=== PATIENT | female | born 1965 | race Caucasian/White ===

== ENCOUNTER 2020-08-17 09:13 | Outpatient (REF) | payer MEDICAID, SELFPAY ==
--- NOTE | 2020-08-17 | US_ITS ---
EXAMINATION: US RETROPERITONEAL LIMITED (RENAL ONLY) CLINICAL INFORMATION: Nephrolithiasis. COMPARISON: CT abdomen and pelvis 05/03/2020. Renal ultrasound 01/07/2017. TECHNIQUE: Real-time imaging of the kidneys. FINDINGS: RIGHT KIDNEY: 11.6 x 4.2 x 4.4 cm (SAG x AP x TRV). The kidney is normal in size, contour, and echogenicity. Renal cortical thickness is normal. No calculi or focal parenchymal lesions. No hydronephrosis. LEFT KIDNEY: 10.5 x 5.6 x 5.4 cm (SAG x AP x TRV). The kidney is normal in size, contour, and echogenicity. Renal cortical thickness is normal. No calculi or focal parenchymal lesions. No hydronephrosis. IMPRESSION: Normal renal ultrasound. Stones described on the CT scan from April 2020 not visible on ultrasound.
== END 2020-08-17 09:14 | disposition home or self-care (01) ==
LOC: HO.US 09:13
PROVIDERS: PCP Internal Medicine; Visit Provider Urology
DX: N20.0 Calculus of kidney (principal)
CPT/HCPCS: 76775

== ENCOUNTER 2020-09-09 10:24 | Outpatient (REF) | payer MEDICAID, SELFPAY ==
[2020-09-09 13:04] LABS: Erythrocyte Sedimentation Rate 30 MM/HR (0-20)
[2020-09-09 13:30] LABS: Syphilis Screen Nonreactive (Nonreactive)
[2020-09-09 13:33] LABS: Rheumatoid Factor < 15.0 IU/mL (<15.0)
[2020-09-10 09:22] LABS: Lyme Abs Screen <0.90 index
== END 2020-09-09 10:25 | disposition home or self-care (01) ==
LOC: HO.LAB 10:24
PROVIDERS: PCP Internal Medicine; Visit Provider Psychiatry & Neurology Neurology
DX: M79.7 Fibromyalgia (principal)
CPT/HCPCS: 36415; 82550; 84550; 85652; 86431; 86618; 86780

== ENCOUNTER → 2020-10-26 09:52 | Outpatient (BNVA) | payer MEDICAID, SELFPAY | PROVIDERS: Visit Provider Obstetrics & Gynecology | DX: Z76.89 Persons encountering health services in other specified circumstances (principal) ==

== ENCOUNTER → 2020-11-24 13:11 | Outpatient (BNVA) | payer MEDICAID, SELFPAY | PROVIDERS: PCP Internal Medicine; Visit Provider Physician Assistant ==

== ENCOUNTER 2021-05-15 12:44 | Outpatient (REF) | payer MEDICAID, SELFPAY ==
--- NOTE | ~2021-05-15 | MM_ITS ---
EXAMINATION: MM SCREENING DIGITAL BREAST TOMOSYNTHESIS, BILATERAL CLINICAL INFORMATION: Screening. Asymptomatic. The lifetime risk of breast cancer based on the Tyrer-Cuzick Model is 6%. COMPARISON: Mammography: 12/22/2019, 12/19/2018, 01/02/2017 TECHNIQUE: Digital breast tomosynthesis is performed in both the craniocaudal and mediolateral oblique views along with computer-aided detection (CAD). Synthesized 2D images are generated from the tomosynthesis. Technologist notes technically challenging exam, tailored to patient's capabilities. FINDINGS: There are scattered areas of fibroglandular density (ACR BI-RADS breast composition Category b). There are no significant masses, abnormal calcifications, or other abnormalities. Referable pattern is similar to prior exam. No developing density. No significant changes. MM/MM tomosynthesis screening BI IMPRESSION: No mammographic evidence of malignancy. ASSESSMENT: BI-RADS 1: Negative RECOMMENDATION: Routine annual mammography screening. This patient's information was entered into a reminder system with a target due date for their next mammogram.
== END 2021-05-15 12:45 | disposition home or self-care (01) ==
LOC: HO.MAMMO 12:44
PROVIDERS: PCP Internal Medicine; Visit Provider Internal Medicine
DX: Z12.31 Encounter for screening mammogram for malignant neoplasm of breast (principal)
CPT/HCPCS: 77063; 77067

== ENCOUNTER 2021-05-21 16:07 | Emergency (ER) | payer MEDICAID, SELFPAY ==
[2021-05-21 16:16] VITALS: BP 151/97; PULSE 100; RESP 18; TEMP 37.2; O2SAT 98; BMI 29.6
[2021-05-21 17:04] LABS: MANUAL DIFF FLAG NO
[2021-05-21 17:09] LABS: Basophils Percent Auto 0.4 % (0-2); Eosinophils Absolute Auto 0.2 X10*3/uL (0.0-0.4); Eosinophils Percent Auto 1.6 % (0-4); Hematocrit 43.4 % (37-47); Hemoglobin 15.1 g/dl (12.0-16.0); Imm Gran Abs Auto 0.02 X10*3/uL (0.00-0.03); Imm Gran Pct Auto 0.2 % (0.0-0.4); Lymphocytes Absolute Auto 1.8 X10*3/uL (1.2-4.9); Lymphocytes Percent Auto 18.7 % (20-40); Mean Corpuscular HGB Conc 34.8 g/dl (31.0-35.0); Mean Corpuscular Hemoglobin 31.4 pg (27.0-33.0); Mean Corpuscular Volume 90.2 fL (80-98); Mean Platelet Volume 10.5 fL (9.4-12.3); Monocytes Absolute Auto 0.8 X10*3/uL (0.1-1.2); Monocytes Percent Auto 8.9 % (2-11); Neutrophils Absolute Auto 6.6 X10*3/uL (2.0-8.3); Neutrophils Percent Auto 70.2 % (45-73); Platelet Count 480 X10*3/uL (160-400); Red Blood Count 4.81 X10*6/uL (4.20-5.50); Red Cell Distribution Width 11.4 % (11.0-16.0); White Blood Count 9.5 X10*3/uL (4.8-10.8)
[2021-05-21 17:42] LABS: Alanine Aminotransferase 49 U/L (0-31); Albumin Level 4.8 g/dL (3.5-5.0); Alkaline Phosphatase 106 U/L (39-117); Anion Gap 15 (12-20); Aspartate Amino Transferase 46 U/L (5-31); Bilirubin Total 0.5 mg/dL (0.0-1.0); Blood Urea Nitrogen 6 mg/dL (9-16); Carbon Dioxide 29 mmol/L (22-29); Chloride 100 mmol/L (96-108); Creatinine Clr Calc Pharmacy 77.4; Estimated Glomerular Filt Rate > 60; Glucose Random 151 mg/dL (60-115); Potassium 3.8 mmol/L (3.3-5.1); Sodium 140 mmol/L (135-145); Total Protein 8.3 g/dL (6.5-8.0)
[2021-05-21 17:53] LABS: Calcium 10.7 mg/dL (8.4-10.2)
== END 2021-05-21 20:00 | disposition left against medical advice (07) ==
PROVIDERS: Emergency Provider Emergency Medicine; PCP Internal Medicine
DX: R10.30 Lower abdominal pain, unspecified (principal); R35.0 Frequency of micturition
CPT/HCPCS: 36415; 80053; 85025; 99282

== ENCOUNTER → 2021-06-09 15:29 | Outpatient (BNVA) | payer MEDICAID, SELFPAY | PROVIDERS: PCP Internal Medicine | DX: R35.0 Frequency of micturition (principal) | CPT/HCPCS: 99202 ==

== ENCOUNTER → 2021-06-22 14:33 | Outpatient (BNVA) | payer MEDICAID, SELFPAY | PROVIDERS: PCP Internal Medicine; Visit Provider Obstetrics & Gynecology | DX: R10.2 Pelvic and perineal pain (principal) | CPT/HCPCS: 99202 ==

== ENCOUNTER → 2021-07-03 15:20 | Outpatient (BNVA) | payer MEDICAID, SELFPAY | PROVIDERS: PCP Internal Medicine | DX: R35.0 Frequency of micturition (principal) | CPT/HCPCS: 99212 ==

== ENCOUNTER 2021-07-11 15:44 | Outpatient (REF) | payer MEDICAID, SELFPAY ==
--- NOTE | ~2021-07-11 | US_ITS ---
EXAMINATION: US PELVIS CLINICAL INFORMATION: Pain. COMPARISON: Previous CT of the abdomen and pelvis April 2020 and pelvic ultrasound December 2007 TECHNIQUE: Transabdominal pelvic ultrasound. FINDINGS: The uterus has been removed. The right ovary is normal-appearing and measures 2.6 x 1.1 x 1.8 cm. There is question of a 3.7 x 2.7 x 3.1 cm left adnexal cyst. There is no fluid in the pelvis. US/US pelvic complete IMPRESSION: Post-hysterectomy. Normal-appearing right ovary. Question 3.7 x 2.7 x 3.1 cm simple left adnexal cyst.
== END 2021-07-11 15:45 | disposition home or self-care (01) ==
LOC: HO.US 15:44
PROVIDERS: Visit Provider Obstetrics & Gynecology
DX: R10.2 Pelvic and perineal pain (principal)
CPT/HCPCS: 76830; 76856

== ENCOUNTER → 2021-07-25 12:08 | Outpatient (BNVA) | payer MEDICAID, SELFPAY | PROVIDERS: PCP Internal Medicine; Visit Provider Obstetrics & Gynecology ==

== ENCOUNTER → 2021-07-27 15:23 | Outpatient (BNVA) | payer MEDICAID, SELFPAY | PROVIDERS: PCP Internal Medicine | DX: R10.2 Pelvic and perineal pain (principal); N39.0 Urinary tract infection, site not specified | CPT/HCPCS: 99212 ==

== ENCOUNTER 2021-09-07 22:02 | Emergency (ER) | payer MEDICAID, SELFPAY ==
[2021-09-07 22:38] VITALS: BP 150/95; PULSE 108; RESP 18; TEMP 36.9; O2SAT 97; BMI 30.1
--- NOTE | 2021-09-07 23:13 | ED_ITS ---
HPI - Abdominal Pain General Chief Complaint: Abdominal Pain <MERON Anne Last Filed: 09/08/21 01:16> Stated Complaint: Lower abdominal pain <MERON Anne Last Filed: 09/08/21 01:16> Time Seen by Provider: 09/07/21 22:58 <MERON Anne Last Filed: 09/08/21 01:16> Source: patient <MERON Anne Last Filed: 09/08/21 01:16> Mode of arrival: ambulatory <MERON Anne Last Filed: 09/08/21 01:16> History of Present Illness HPI narrative: 56-year-old female the past medical history of early-onset Alzheimer's, recurrent UTIs, primarily Taiwanese-speaking, presenting to the ED complaining of left lower quadrant abdominal pain, dysuria, & urinary frequency since yesterday. Daughter provides most of history, reports patient with similar symptoms in the past with UTI. Denies fever, chills, nausea, vomiting, diarrhea, constipation, hematuria <MERON Anne Last Filed: 09/08/21 01:16> Related Data Home Medications: Home Medications Medication Instructions Recorded Confirmed amlodipine 5 mg tablet 5 mg PO DAILY 10/26/20 06/09/21 atorvastatin 20 mg tablet 20 mg PO DAILY 10/26/20 06/09/21 carvedilol 6.25 mg tablet 6.25 mg PO Q12H 10/26/20 06/09/21 donepezil 10 mg tablet 10 mg PO DAILY 10/26/20 06/09/21 gabapentin 400 mg capsule 400 mg PO DAILY 10/26/20 06/09/21 paroxetine HCl 40 mg tablet 40 mg PO DAILY 10/26/20 06/09/21 ciprofloxacin HCl 500 mg tablet 500 mg PO Q12H 06/09/21 06/09/21 donepezil 10 mg tablet 10 mg PO BEDTIME 06/09/21 06/09/21 doxycycline hyclate 100 mg tablet 100 mg PO BID 06/09/21 06/09/21 ibuprofen 800 mg tablet 800 mg PO TID 06/09/21 06/09/21 memantine 10 mg tablet 10 mg PO BID 06/09/21 06/09/21 metformin 500 mg tablet 500 mg PO BID 06/09/21 06/09/21 oxycodone 5 mg tablet 5 mg PO QID PRN 06/09/21 06/09/21 amlodipine 2.5 mg tablet 2.5 mg PO QAM 07/03/21 blood sugar diagnostic (FreeStyle #10 ea 07/03/21 Lite Strips) divalproex 250 mg tablet,extended 250 mg PO BEDTIME 07/03/21 release 24 hr lancets 33 gauge (TRUEplus Lancets) #100 ea 07/03/21 Previous Rx's Medication Instructions Recorded estradiol (Estrace) See Rx Instructions .ROUTE DAILY 07/03/21 30 Days #42.5 g nitrofurantoin 100 mg PO Q12H 7 Days #14 cap 09/08/21 monohydrate/macrocrystals 100 mg capsule (Macrobid) <MERON Anne Last Filed: 09/08/21 01:16> Allergies/Adverse Reactions: Allergies Allergy/AdvReac Type Severity Reaction Status Date / Time codeine [Codeine] Allergy Intermediate HIVES Verified 07/27/21 15:35 morphine Allergy Unknown unknown Verified 07/27/21 15:35 SPICES Allergy Unknown UNKNOWN Uncoded 06/09/21 15:59 <MERON Anne - Last Filed: 09/08/21 01:16> Review of Systems Review of Systems Constitutional: No Fever, No Chills, No Fatigue, No Malaise ENT/Mouth: No Ear Pain, No Nasal Congestion, No sore throat Eyes: No Eye Pain Cardiovascular: No Chest Pain, No SOB Respiratory: No Cough, No Dyspnea Gastrointestinal: No Nausea, No Vomiting, No Diarrhea, No Constipation, No Abdominal pain Genitourinary: No irregular bleeding, + Dysuria, + Urinary Frequency, No Hematuria,+ Urgency, + Flank Pain, No Urinary Flow Changes, No Hesitancy Musculoskeletal: No joint pain, No Myalgias Skin: No Skin Lesions, No rash Neuro: No Weakness, No Numbness, No Headache <MERON Anne Last Filed: 09/08/21 01:16> Yes all other systems are reviewed and are negative <MERON Anne Last Filed: 09/08/21 01:16> Physical Exam Vital Signs: Vital Signs: Last Vital Signs Temp 98.5 F 09/07/21 22:38 Pulse 99 09/08/21 02:00 Resp 16 09/08/21 02:00 BP 129/85 09/08/21 02:00 Pulse Ox 97 09/08/21 02:00 Body Mass Index 30.1 <MERON Anne - Last Filed: 09/08/21 01:16> Vital Signs: Last Vital Signs Temp 98.5 F 09/07/21 22:38 Pulse 99 09/08/21 02:00 Resp 16 09/08/21 02:00 BP 129/85 09/08/21 02:00 Pulse Ox 97 09/08/21 02:00 Body Mass Index 30.1 <Nazia Jorge MD - Last Filed: 09/08/21 03:13> Const: General: cooperative, healthy appearing and no acute distress <MERON Anne - Last Filed: 09/08/21 01:16> Limitations: no limitations <MERON Anne - Last Filed: 09/08/21 01:16> HENMT: Head: Yes normal to inspection <MERON Anne - Last Filed: 03/24 01:16> Ears: hearing grossly normal bilaterally <MERON Anne - Last Filed: 09/08/21 01:16> General nose exam: Normal external nose present <MERON Anne - Last Filed: 09/08/21 01:16> Face and sinus: Yes normal facial exam <MERON Anne - Last Filed: 09/08/21 01:16> Eyes: General: appearance normal, both eyes and all related structures <MERON Anne - Last Filed: 09/08/21 01:16> EOM: EOMs intact bilaterally <MERON Anne - Last Filed: 09/08/21 01:16> Neck: Neck: Yes normal visual inspection <MERON Anne - Last Filed: 09/08/21 01:16> Resp: Effort & Inspection: normal respiratory effort and no respiratory distress <MERON Anne - Last Filed: 09/08/21 01:16> Cardio: Rate: regular rate <MERON Anne - Last Filed: 09/08/21 01:16> Heart sounds: S1 normal heart sound present and S2 normal heart sound present <MERON Anne - Last Filed: 09/08/21 01:16> GI: Inspection: Yes normal to inspection <MERON Anne - Last Filed: 09/08/21 01:16> Palpation (GI): Soft to palpation, nontender, no guarding and not rigid <MERON Anne - Last Filed: 09/08/21 01:16> : General: Yes CVA tenderness bilateral <MERON Anne - Last Filed: 09/08/21 01:16> Back/Spine/Pelvis: Back: CVA tenderness <MERON Anne - Last Filed: 09/08/21 01:16> Skin: Rashes: no rashes <MERON Anne - Last Filed: 09/08/21 01:16> Wounds: no wounds <MERON Anne - Last Filed: 09/08/21 01:16> Neuro: Gait exam (Neuro): Normal gait present <MERON Anne - Last Filed: 09/08/21 01:16> Extrem: General: Yes normal to inspection <MERON Anne - Last Filed: 09/08/21 01:16> Course Course Course Narrative: -0043--no leukocytosis. Lactic acid elevated to 2.9 likely from Metformin rather than severe sepsis. Labs otherwise unremarkable -ED care transferred to Dr. Jorge pending UA, IVF and repeat lactic, anticipated DC home <MERON Anne - Last Filed: 09/08/21 01:16> -0043--no leukocytosis. Lactic acid elevated to 2.9 likely from Metformin rather than severe sepsis. Labs otherwise unremarkable -ED care transferred to Dr. Jorge pending UA, IVF and repeat lactic, anticipated DC home I received sign-out from MERON Kwok, patient is feeling well. Patient does have a UTI first dose of Macrobid given in the emergency room. Lactic acidosis resolved. Patient's daughter feels comfortable taking her home. <Nazia Jorge MD - Last Filed: 09/08/21 03:13> MDM - Abdominal Pain MDM Narrative Medical decision making narrative: 56-year-old female the past medical history of early-onset Alzheimer's, recurrent UTIs, primarily Taiwanese-speaking, presenting to the ED complaining of left lower quadrant abdominal pain, dysuria, & urinary frequency since yesterday. On exam tachycardic, NAD/nontoxic, abdomen soft/nontender, bilateral CVAT. Concern for UTI vs ?pyelo. Lower concern for appendicitis/diverticulitis without tenderness on exam. Lower concern for renal stone Plan: Labs, UA, lactic/cultures. Low concern for severe sepsis at this time <MERON Anne - Last Filed: 09/08/21 01:16> Medical Records Attestation: I reviewed the patient's medical records. <MERON Anne - Last Filed: 09/08/21 01:16> Lab Data Attestation: I reviewed the patient's lab results. <MERON Anne - Last Filed: 09/08/21 01:16> Result diagrams: : 09/08/21 00:00 09/08/21 00:00 <MERON Anne - Last Filed: 09/08/21 01:16> Labs: Lab Results 09/08/21 09/08/21 09/08/21 Range/Units 00:00 00:00 00:00 WBC 10.0 (4.8-10.8) X10*3/uL RBC 4.65 (4.20-5.50) X10*6/uL Hgb 14.6 (12.0-16.0) g/dl Hct 42.7 (37.0-47.0) % MCV 91.8 (80.0-98.0) fL MCH 31.4 (27.0-33.0) pg MCHC 34.2 (31.0-35.0) g/dl RDW 11.9 (11.0-16.0) % Plt Count 484 H (160-400) X10*3/uL MPV 10.2 (9.4-12.3) fL Immature Gran % (Auto) 0.3 (0.0-0.4) % Neut % (Auto) 62.9 (45-73) % Lymph % (Auto) 26.1 (20-40) % Casey % (Auto) 8.2 (2-11) % Eos % (Auto) 2.0 (0-4) % Baso % (Auto) 0.5 (0-2) % Lymph # (Auto) 2.6 (1.2-4.9) X10*3/uL Casey # (Auto) 0.8 (0.1-1.2) X10*3/uL Eos # (Auto) 0.2 (0.0-0.4) X10*3/uL Baso # (Auto) 0.1 (0.0-0.2) X10*3/uL Abs Immat Gran (auto) 0.03 (0.00-0.03) X10*3/uL Absolute Neuts (auto) 6.3 (2.0-8.3) x10*3/uL Absolute Nucleated RBC 0.000 (0.0-0.012) X10*3/uL Nucleated RBC % (auto) 0.0 (0.0-0.2) /100WBC Sodium 141 (135-145) mmol/L Potassium 3.7 (3.3-5.1) mmol/L Chloride 102 (96-108) mmol/L Carbon Dioxide 30 H (22-29) mmol/L Anion Gap 13 (12-20) BUN 9 (9-16) mg/dL Creatinine 0.80 (0.5-1.4) mg/dL Estim Creat Clear Calc 77.2 Estimated GFR > 60 Random Glucose 166 H (60-115) mg/dL Lactic Acid 2.9 H* (0.5-2.0) mmol/L Calcium 10.5 H (8.4-10.2) mg/dL Total Bilirubin 0.2 (0.0-1.0) mg/dL Direct Bilirubin < 0.2 (0.0-0.5) mg/dL AST 18 D (5-31) U/L ALT 20 (0-31) U/L Alkaline Phosphatase 110 (39-117) U/L Total Protein 7.9 (6.5-8.0) g/dL Albumin 4.6 (3.5-5.0) g/dL Lipase 42 (8-78) U/L Urine Color Urine Appearance Urine pH (5.0-8.0) Ur Specific [place] (1.005-1.025) Urine Protein (NEG-TRACE) MG/DL Urine Glucose (UA) (NEG) MG/DL Urine Ketones (NEG) MG/DL Urine Blood (NEG) Urine Nitrite (NEG) Ur Leukocyte Esterase (NEG) Urine RBC (0) /HPF Urine WBC (0-4) /HPF Ur Squamous Epith Cells /LPF Calcium Oxalate Crystal /LPF Urine Bacteria /LPF Urine Mucus /LPF Urine Test (NEGATIVE) 09/08/21 09/08/21 09/08/21 Range/Units 01:03 01:03 02:24 WBC (4.8-10.8) X10*3/uL RBC (4.20-5.50) X10*6/uL Hgb (12.0-16.0) g/dl Hct (37.0-47.0) % MCV (80.0-98.0) fL MCH (27.0-33.0) pg MCHC (31.0-35.0) g/dl RDW (11.0-16.0) % Plt Count (160-400) X10*3/uL MPV (9.4-12.3) fL Immature Gran % (Auto) (0.0-0.4) % Neut % (Auto) (45-73) % Lymph % (Auto) (20-40) % Casey % (Auto) (2-11) % Eos % (Auto) (0-4) % Baso % (Auto) (0-2) % Lymph # (Auto) (1.2-4.9) X10*3/uL Casey # (Auto) (0.1-1.2) X10*3/uL Eos # (Auto) (0.0-0.4) X10*3/uL Baso # (Auto) (0.0-0.2) X10*3/uL Abs Immat Gran (auto) (0.00-0.03) X10*3/uL Absolute Neuts (auto) (2.0-8.3) x10*3/uL Absolute Nucleated RBC (0.0-0.012) X10*3/uL Nucleated RBC % (auto) (0.0-0.2) /100WBC Sodium (135-145) mmol/L Potassium (3.3-5.1) mmol/L Chloride (96-108) mmol/L Carbon Dioxide (22-29) mmol/L Anion Gap (12-20) BUN (9-16) mg/dL Creatinine (0.5-1.4) mg/dL Estim Creat Clear Calc Estimated GFR Random Glucose (60-115) mg/dL Lactic Acid 1.6 (0.5-2.0) mmol/L Calcium (8.4-10.2) mg/dL Total Bilirubin (0.0-1.0) mg/dL Direct Bilirubin (0.0-0.5) mg/dL AST (5-31) U/L ALT (0-31) U/L Alkaline Phosphatase (39-117) U/L Total Protein (6.5-8.0) g/dL Albumin (3.5-5.0) g/dL Lipase (8-78) U/L Urine Color ORANGE Urine Appearance CLOUDY Urine pH 5.5 (5.0-8.0) Ur Specific [place] >= 1.030 H (1.005-1.025) Urine Protein 1+ H (NEG-TRACE) MG/DL Urine Glucose (UA) NEG (NEG) MG/DL Urine Ketones 5 (NEG) MG/DL Urine Blood TRACE (NEG) Urine Nitrite NEG (NEG) Ur Leukocyte Esterase TRACE H (NEG) Urine RBC 1-4 (0) /HPF Urine WBC 5-9 H (0-4) /HPF Ur Squamous Epith Cells 4+ /LPF Calcium Oxalate Crystal TRACE /LPF Urine Bacteria 1+ /LPF Urine Mucus 3+ /LPF Urine Test NEGATIVE (NEGATIVE) <MERON Anne - Last Filed: 09/08/21 01:16> Lab Results 09/08/21 09/08/21 09/08/21 Range/Units 00:00 00:00 00:00 WBC 10.0 (4.8-10.8) X10*3/uL RBC 4.65 (4.20-5.50) X10*6/uL Hgb 14.6 (12.0-16.0) g/dl Hct 42.7 (37.0-47.0) % MCV 91.8 (80.0-98.0) fL MCH 31.4 (27.0-33.0) pg MCHC 34.2 (31.0-35.0) g/dl RDW 11.9 (11.0-16.0) % Plt Count 484 H (160-400) X10*3/uL MPV 10.2 (9.4-12.3) fL Immature Gran % (Auto) 0.3 (0.0-0.4) % Neut % (Auto) 62.9 (45-73) % Lymph % (Auto) 26.1 (20-40) % Casey % (Auto) 8.2 (2-11) % Eos % (Auto) 2.0 (0-4) % Baso % (Auto) 0.5 (0-2) % Lymph # (Auto) 2.6 (1.2-4.9) X10*3/uL Casey # (Auto) 0.8 (0.1-1.2) X10*3/uL Eos # (Auto) 0.2 (0.0-0.4) X10*3/uL Baso # (Auto) 0.1 (0.0-0.2) X10*3/uL Abs Immat Gran (auto) 0.03 (0.00-0.03) X10*3/uL Absolute Neuts (auto) 6.3 (2.0-8.3) x10*3/uL Absolute Nucleated RBC 0.000 (0.0-0.012) X10*3/uL Nucleated RBC % (auto) 0.0 (0.0-0.2) /100WBC Sodium 141 (135-145) mmol/L Potassium 3.7 (3.3-5.1) mmol/L Chloride 102 (96-108) mmol/L Carbon Dioxide 30 H (22-29) mmol/L Anion Gap 13 (12-20) BUN 9 (9-16) mg/dL Creatinine 0.80 (0.5-1.4) mg/dL Estim Creat Clear Calc 77.2 Estimated GFR > 60 Random Glucose 166 H (60-115) mg/dL Lactic Acid 2.9 H* (0.5-2.0) mmol/L Calcium 10.5 H (8.4-10.2) mg/dL Total Bilirubin 0.2 (0.0-1.0) mg/dL Direct Bilirubin < 0.2 (0.0-0.5) mg/dL AST 18 D (5-31) U/L ALT 20 (0-31) U/L Alkaline Phosphatase 110 (39-117) U/L Total Protein 7.9 (6.5-8.0) g/dL Albumin 4.6 (3.5-5.0) g/dL Lipase 42 (8-78) U/L Urine Color Urine Appearance Urine pH (5.0-8.0) Ur Specific [place] (1.005-1.025) Urine Protein (NEG-TRACE) MG/DL Urine Glucose (UA) (NEG) MG/DL Urine Ketones (NEG) MG/DL Urine Blood (NEG) Urine Nitrite (NEG) Ur Leukocyte Esterase (NEG) Urine RBC (0) /HPF Urine WBC (0-4) /HPF Ur Squamous Epith Cells /LPF Calcium Oxalate Crystal /LPF Urine Bacteria /LPF Urine Mucus /LPF Urine Test (NEGATIVE) 09/08/21 09/08/21 09/08/21 Range/Units 01:03 01:03 02:24 WBC (4.8-10.8) X10*3/uL RBC (4.20-5.50) X10*6/uL Hgb (12.0-16.0) g/dl Hct (37.0-47.0) % MCV (80.0-98.0) fL MCH (27.0-33.0) pg MCHC (31.0-35.0) g/dl RDW (11.0-16.0) % Plt Count (160-400) X10*3/uL MPV (9.4-12.3) fL Immature Gran % (Auto) (0.0-0.4) % Neut % (Auto) (45-73) % Lymph % (Auto) (20-40) % Casey % (Auto) (2-11) % Eos % (Auto) (0-4) % Baso % (Auto) (0-2) % Lymph # (Auto) (1.2-4.9) X10*3/uL Casey # (Auto) (0.1-1.2) X10*3/uL Eos # (Auto) (0.0-0.4) X10*3/uL Baso # (Auto) (0.0-0.2) X10*3/uL Abs Immat Gran (auto) (0.00-0.03) X10*3/uL Absolute Neuts (auto) (2.0-8.3) x10*3/uL Absolute Nucleated RBC (0.0-0.012) X10*3/uL Nucleated RBC % (auto) (0.0-0.2) /100WBC Sodium (135-145) mmol/L Potassium (3.3-5.1) mmol/L Chloride (96-108) mmol/L Carbon Dioxide (22-29) mmol/L Anion Gap (12-20) BUN (9-16) mg/dL Creatinine (0.5-1.4) mg/dL Estim Creat Clear Calc Estimated GFR Random Glucose (60-115) mg/dL Lactic Acid 1.6 (0.5-2.0) mmol/L Calcium (8.4-10.2) mg/dL Total Bilirubin (0.0-1.0) mg/dL Direct Bilirubin (0.0-0.5) mg/dL AST (5-31) U/L ALT (0-31) U/L Alkaline Phosphatase (39-117) U/L Total Protein (6.5-8.0) g/dL Albumin (3.5-5.0) g/dL Lipase (8-78) U/L Urine Color ORANGE Urine Appearance CLOUDY Urine pH 5.5 (5.0-8.0) Ur Specific [place] >= 1.030 H (1.005-1.025) Urine Protein 1+ H (NEG-TRACE) MG/DL Urine Glucose (UA) NEG (NEG) MG/DL Urine Ketones 5 (NEG) MG/DL Urine Blood TRACE (NEG) Urine Nitrite NEG (NEG) Ur Leukocyte Esterase TRACE H (NEG) Urine RBC 1-4 (0) /HPF Urine WBC 5-9 H (0-4) /HPF Ur Squamous Epith Cells 4+ /LPF Calcium Oxalate Crystal TRACE /LPF Urine Bacteria 1+ /LPF Urine Mucus 3+ /LPF Urine Test NEGATIVE (NEGATIVE) <Nazia Jorge MD - Last Filed: 09/08/21 03:13> Discharge Plan Discharge Clinical Impression: Acute UTI <MERON Anne - Last Filed: 09/08/21 01:16> Patient Disposition: Home, Self-Care <MERON Anne - Last Filed: 09/08/21 01:16> Instructions: Urinary Tract Infection in Older Adults (ED) <MERON Anne - Last Filed: 09/08/21 01:16> Additional Instructions: Please follow-up with your primary care physician tomorrow. If you have any worsening or new symptoms, please return to the emergency room or call 911 <MERON Anne - Last Filed: 09/08/21 01:16> Prescriptions: New nitrofurantoin monohyd/m-cryst [Macrobid] 100 mg capsule 100 mg PO Q12H 7 Days Qty: 14 RF: 0 No Action estradiol [Estrace] 0.01 % (0.1 mg/gram) cream See Rx Instructions .Route DAILY 30 Days Qty: 42.5 RF: 0 carvedilol 6.25 mg tablet 6.25 mg PO Q12H RF: 0 paroxetine HCl 40 mg tablet 40 mg PO DAILY RF: 0 donepezil 10 mg tablet 10 mg PO DAILY RF: 0 atorvastatin 20 mg tablet 20 mg PO DAILY RF: 0 amlodipine 5 mg tablet 5 mg PO DAILY RF: 0 gabapentin 400 mg capsule 400 mg PO DAILY RF: 0 donepezil 10 mg tablet 10 mg PO BEDTIME RF: 0 memantine 10 mg tablet 10 mg PO BID RF: 0 oxycodone 5 mg tablet 5 mg PO QID PRNRF: 0 ibuprofen 800 mg tablet 800 mg PO TID RF: 0 doxycycline hyclate 100 mg tablet 100 mg PO BID RF: 0 ciprofloxacin HCl 500 mg tablet 500 mg PO Q12H RF: 0 metformin 500 mg tablet 500 mg PO BID RF: 0 <MERON Anne - Last Filed: 09/08/21 01:16> Stand Alone Forms: Work/School Release <MERON Anne - Last Filed: 09/08/21 01:16> [facility] Past Medical History Attestation statement: The following information was validated with the patient. <MERON Anne - Last Filed: 09/08/21 01:16> Medical History: Medical History (Updated 09/08/21 @ 01:16 by MERON Anne) AD (Alzheimer's disease) Anxiety Arthritis Bladder pain Carpal tunnel syndrome Depression Fibromyalgia Frequent UTI GERD (gastroesophageal reflux disease) HTN (hypertension) Migraines Panic disorder Schatzki's ring Urinary frequency <MERON Anne - Last Filed: 09/08/21 01:16> Surgical History: Surgical History H/O: hysterectomy History of bladder surgery History of <MERON Anne - Last Filed: 09/08/21 01:16> Family History Family History: Family History Father Alzheimer disease Father Alzheimer disease Mother No problems noted. Sister Alzheimer disease <MERON Anne - Last Filed: 09/08/21 01:16> Social History Social History: Social History Household Members: Spouse Household Members Other:: 3 healthy children Alcohol intake: never Patient Tobacco Use Status: Never used Tobacco Use of substances other than those prescribed or required for medical reasons: No Advance Directives: No Advance Directives Information Provided: Yes Patient : No Current occupational status: unemployed and disabled Sexual orientation: Straight/Heterosexual Gender identity: Female <MERON Anne - Last Filed: 09/08/21 01:16>
[2021-09-08] VITALS: BP 130/80; PULSE 105; RESP 18; O2SAT 99
[2021-09-08 00:05] LABS: Basophils Absolute Auto 0.1 X10*3/uL (0.0-0.2); Basophils Percent Auto 0.5 % (0-2); Eosinophils Absolute Auto 0.2 X10*3/uL (0.0-0.4); Hematocrit 42.7 % (37.0-47.0); Hemoglobin 14.6 g/dl (12.0-16.0); Imm Gran Abs Auto 0.03 X10*3/uL (0.00-0.03); Imm Gran Pct Auto 0.3 % (0.0-0.4); Lymphocytes Absolute Auto 2.6 X10*3/uL (1.2-4.9); Lymphocytes Percent Auto 26.1 % (20-40); MANUAL DIFF FLAG NO; Mean Corpuscular HGB Conc 34.2 g/dl (31.0-35.0); Mean Corpuscular Hemoglobin 31.4 pg (27.0-33.0); Mean Corpuscular Volume 91.8 fL (80.0-98.0); Mean Platelet Volume 10.2 fL (9.4-12.3); Monocytes Absolute Auto 0.8 X10*3/uL (0.1-1.2); Monocytes Percent Auto 8.2 % (2-11); Neutrophils Absolute Auto 6.3 x10*3/uL (2.0-8.3); Neutrophils Percent Auto 62.9 % (45-73); Platelet Count 484 X10*3/uL (160-400); Red Blood Count 4.65 X10*6/uL (4.20-5.50); Red Cell Distribution Width 11.9 % (11.0-16.0)
[2021-09-08 00:32] LABS: Alanine Aminotransferase 20 U/L (0-31); Albumin Level 4.6 g/dL (3.5-5.0); Alkaline Phosphatase 110 U/L (39-117); Anion Gap 13 (12-20); Aspartate Amino Transferase 18 U/L (5-31); Bilirubin Direct < 0.2 mg/dL (0.0-0.5); Bilirubin Total 0.2 mg/dL (0.0-1.0); Blood Urea Nitrogen 9 mg/dL (9-16); Calcium 10.5 mg/dL (8.4-10.2); Carbon Dioxide 30 mmol/L (22-29); Chloride 102 mmol/L (96-108); Creatinine Clr Calc Pharmacy 77.2; Estimated Glomerular Filt Rate > 60; Glucose Random 166 mg/dL (60-115); Lactic Acid 2.9 mmol/L (0.5-2.0); Lipase 42 U/L (8-78); Potassium 3.7 mmol/L (3.3-5.1); Sodium 141 mmol/L (135-145); Total Protein 7.9 g/dL (6.5-8.0)
[2021-09-08 01:15] LABS: Appearance Urine CLOUDY; Color Urine ORANGE; Glucose Urine UA NEG (NEG); Leukocyte Esterase Urine TRACE (NEG); Nitrite Urine NEG (NEG); PH 5.5 (5.0-8.0); Specific Gravity - Urine >= 1.030 (1.005-1.025); UACC Culture Trigger YES; Urine Blood TRACE (NEG); Urine Ketones 5 MG/DL (NEG); Urine Protein 1+ MG/DL (NEG-TRACE)
[2021-09-08 01:16] LABS: Urine Pregnancy NEGATIVE (NEGATIVE)
[2021-09-08 01:17] LABS: UPreg QC Valid YES
[2021-09-08 01:36] LABS: Bacteria Urine 1+ /LPF; Calcium Oxalate Crystals Urine TRACE /LPF; Mucus Urine 3+ /LPF; Squamous Epithelial Cell Urine 4+ /LPF
[2021-09-08 02:00] VITALS: BP 129/85; PULSE 99; RESP 16; O2SAT 97
[2021-09-08 02:04] LABS: Reflex Lactate? Lactic Acid Added
[2021-09-08] MEDS: 0.9 % Sodium Chloride 1,000 ML 999 ML IVCONT (02:12)
[2021-09-08 02:39] LABS: Lactic Acid 1.6 mmol/L (0.5-2.0)
[2021-09-08] MEDS: Nitrofurantoin Monohyd/M-Cryst 100 MG CAPSULE PO (03:22)
== END 2021-09-08 03:25 | disposition home or self-care (01) ==
PROVIDERS: Physician Assistant; Emergency Provider Emergency Medicine; PCP Internal Medicine
DX: N39.0 Urinary tract infection, site not specified (principal); I10 Essential (primary) hypertension; G30.0 Alzheimer's disease with early onset; F02.80 Dementia in other diseases classified elsewhere, unspecified severity, without behavioral disturbance, psychotic disturbance, mood disturbance, and anxiety; Z87.440 Personal history of urinary (tract) infections
CPT/HCPCS: 36415; 80048; 80076; 81001; 81025; 83605; 83690; 85025; 87040; 87086; 96360; 99284

== ENCOUNTER 2022-10-24 20:06 | Emergency (ER) | payer MEDICAID, SELFPAY ==
--- NOTE | ~2022-10-24 | CT_ITS ---
EXAMINATION: CT BRAIN WITHOUT CONTRAST. AP PELVIS CLINICAL INFORMATION: Fall x2. Unable to stand. COMPARISON: None TECHNIQUE: 5 mm thin axial and reformatted 2 mm thin sagittal and coronal images of brain were obtained. DLP 741. This CT examination was performed using dose optimization technique as appropriate, variously including the following: Automated exposure control Adjustment of MA and/or KV according to patient size(this includes techniques or standardized protocols for targeted exams where dose is matched to indication/reason for exam; extremities or head. Use of iterative reconstruction techniques. Pelvis AP one view. FINDINGS: Pelvis: There is normal symmetry of SI joints and hip joints. No visible fracture or dislocation. The pelvic bones are intact. The soft tissues are normal. Brain: There is no acute intra-axial, extra-axial bleed, masses or midline shift. There is no acute infarction evolution. The [place] to white matter difference is maintained normal. The lateral ventricles are symmetrical in size but enlarged. No abnormality seen in the posterior fossa. Bone windows reveal no calvarial abnormality. There is no scalp soft tissue abnormality. Bilateral paranasal sinuses and mastoid air cells are well-aerated. CT/CT head/brain wo IV con IMPRESSION: Unremarkable pelvis AP exam. No acute intracranial process seen.
[2022-10-24 20:07] VITALS: BP 130/84; RESP 20; TEMP 36.4; BMI 24.7
--- NOTE | 2022-10-24 20:15 | ED.FALL ---
HPI - Fall General Chief Complaint: Fall <Jj Ramos MD - Last Filed: 10/24/22 20:21> Stated Complaint: fall, Leg pain, trouble walking. Ams <Jj Ramos MD - Last Filed: 10/24/22 20:21> Time Seen by Provider: 10/24/22 22:10 <Jj Ramos MD - Last Filed: 10/24/22 20:21> Source: patient and family <Nazia Jorge MD - Last Filed: 10/25/22 00:05> Mode of arrival: ambulatory <Nazia Jogre MD - Last Filed: 10/25/22 00:05> Limitations: no limitations <Nazia Jorge MD - Last Filed: 10/25/22 00:05> History of Present Illness HPI Narrative: Patient comes to the emergency room accompanied by her daughter, complaining of multiple falls. Patient has history of advanced Alzheimer's, patient unable to give any history. The daughter states that the patient has been feeling weak, worsening over the last week. However, for the last few months patient has needed assistance for standing or walking. Patient has had multiple falls in the past. Today patient fell on her buttocks. According to the family, patient is not on blood thinners, did not lose consciousness. Family states the patient has not had fever or chills. Patient has not complaining of abdominal or flank pain. The family states that if the patient has pain she is able to tell him. <Nazia Jorge MD - Last Filed: 10/25/22 00:05> Related Data Home Medications: Home Medications Medication Instructions Recorded Confirmed amlodipine 5 mg tablet 5 mg PO DAILY 10/26/20 06/09/21 atorvastatin 20 mg tablet 20 mg PO DAILY 10/26/20 06/09/21 carvedilol 6.25 mg tablet 6.25 mg PO Q12H 10/26/20 06/09/21 donepezil 10 mg tablet 10 mg PO DAILY 10/26/20 06/09/21 gabapentin 400 mg capsule 400 mg PO DAILY 10/26/20 06/09/21 paroxetine HCl 40 mg tablet 40 mg PO DAILY 10/26/20 06/09/21 ciprofloxacin HCl 500 mg tablet 500 mg PO Q12H 06/09/21 06/09/21 donepezil 10 mg tablet 10 mg PO BEDTIME 06/09/21 06/09/21 doxycycline hyclate 100 mg tablet 100 mg PO BID 06/09/21 06/09/21 ibuprofen 800 mg tablet 800 mg PO TID 06/09/21 06/09/21 memantine 10 mg tablet 10 mg PO BID 06/09/21 06/09/21 metformin 500 mg tablet 500 mg PO BID 06/09/21 06/09/21 oxycodone 5 mg tablet 5 mg PO QID PRN 06/09/21 06/09/21 amlodipine 2.5 mg tablet 2.5 mg PO QAM 07/03/21 blood sugar diagnostic (FreeStyle #10 ea 07/03/21 Lite Strips) divalproex 250 mg tablet,extended 250 mg PO BEDTIME 07/03/21 release 24 hr lancets 33 gauge (TRUEplus Lancets) #100 ea 07/03/21 Previous Rx's Medication Instructions Recorded gabapentin 400 mg capsule 400 mg PO TID #90 caps 09/15/20 estradiol 0.01% (0.1 mg/gram) See Rx Instructions .Route DAILY 07/03/21 vaginal cream (Estrace) complicated uti 30 days #42.5 grams nitrofurantoin 100 mg PO Q12H 7 days #14 caps 09/08/21 monohydrate/macrocrystals 100 mg capsule (Macrobid) levofloxacin 500 mg tablet 500 mg PO DAILY #7 tabs 10/25/22 <Jj Ramos MD - Last Filed: 10/24/22 20:21> Allergies/Adverse Reactions: Allergies Allergy/AdvReac Type Severity Reaction Status Date / Time codeine [Codeine] Allergy Intermediate HIVES Verified 10/24/22 20:19 morphine Allergy Unknown unknown Verified 10/24/22 20:19 penicillin V Allergy Unknown hives Verified 10/24/22 20:19 Codeine Sulfate Allergy Unknown hives Uncoded 10/24/22 20:19 SPICES Allergy Unknown UNKNOWN Uncoded 10/24/22 20:19 <Jj Ramos MD - Last Filed: 10/24/22 20:21> Review of Systems Review of Systems: Yes Unobtainable due to mental condition <Nazia Jorge MD - Last Filed: 10/25/22 00:05> [facility] Past Medical History Medical History: Medical History AD (Alzheimer's disease) Anxiety Arthritis Bladder pain Carpal tunnel syndrome Depression Fibromyalgia Frequent UTI GERD (gastroesophageal reflux disease) HTN (hypertension) Migraines Panic disorder Schatzki's ring Urinary frequency <Jj Ramos MD - Last Filed: 10/24/22 20:21> Surgical History: Surgical History (System 11/08/21 @ 14:30 by Lacey White) H/O: hysterectomy History of bladder surgery History of <Jj Ramos MD - Last Filed: 10/24/22 20:21> Family History Family History: Family History Father Alzheimer disease Father Alzheimer disease Mother No problems noted. Sister Alzheimer disease <Jj Ramos MD - Last Filed: 10/24/22 20:21> Social History Social History: Social History (System 11/08/21 @ 14:30 by Lacey White) Household Members: Spouse Household Members Other:: 3 healthy children Alcohol intake: never Patient Tobacco Use Status: Never used Tobacco Advance Directives: No Advance Directives Information Provided: Yes Patient : No Current occupational status: unemployed and disabled Sexual orientation: Straight/Heterosexual Gender identity: Female <Jj Ramos MD - Last Filed: 10/24/22 20:21> Physical Exam Vital Signs: Vital Signs: Last Vital Signs Temp 97.7 F 10/24/22 21:41 Pulse 110 H 10/24/22 21:41 Resp 14 10/24/22 21:41 BP 161/111 H 10/24/22 21:41 Pulse Ox 95 10/24/22 21:41 O2 Del Method 10/24/22 21:41 BMI result Body Mass Index 24.7 <Jj Ramos MD - Last Filed: 10/24/22 20:21> Vital Signs: Last Vital Signs Temp 97.7 F 10/24/22 21:41 Pulse 110 H 10/24/22 21:41 Resp 14 10/24/22 21:41 BP 161/111 H 10/24/22 21:41 Pulse Ox 95 10/24/22 21:41 O2 Del Method 10/24/22 21:41 BMI result Body Mass Index 24.7 <Nazia Jorge MD - Last Filed: 10/25/22 00:05> Const: Other: Appearance: Alert. Oriented X1. Eyes: Pupils equal, round and reactive to light. ENT: Pharynx normal. Neck: Normal inspection. Neck supple. No lymph nodes noted. No crepitus CVS: Normal heart rate and rhythm. Pulses normal. Normal S1 and S2 Respiratory: No respiratory distress. Breath sounds normal. No Wheezing. No rales Abdomen: Soft and nontender. No rigidity. No distention. Skin: Skin warm and dry. Normal skin color. Normal skin turgor. Extremities: No lower extremity edema. No Lacerations. No Rash Neuro: No motor deficit. No sensory deficit. Moving all extremities. No slurred speech. CN 2 through 12 grossly intact Psych: calm, cooperative, very anxious <Nazia Jorge MD - Last Filed: 10/25/22 00:05> Course Course Course Narrative: 57-year-old female with Alzheimer's dementia who was brought to the emergency department by her daughter for evaluation of multiple falls in inability to walk. The patient had a fall on Saturday10/22/2022 (3 days prior) and a fall today. The daughter states that the patient fell on her buttocks and did not strike her head from the falls. The patient has been having difficulty walking today, when she stands her legs are shaky in give out on her. Normally the patient is able to walk however now she is having difficulty standing since the falls. She has no other reported symptoms except for significant weight loss over the last 2-3 months. Daughter also reports that the patient has a left labial ?bump/lump ?. I ordered a CBC, CMP, lipase, PT/INR, PTT, straight cath urinalysis, COVID-19, influenza and RSV. I will also obtain a CT scan of the brain and a pelvic x-ray. Patient was sent back to the waiting room until a bed is available in the emergency department. <Jj Ramos MD - Last Filed: 10/24/22 20:21> 57-year-old female with Alzheimer's dementia who was brought to the emergency department by her daughter for evaluation of multiple falls in inability to walk. The patient had a fall on Saturday10/22/2022 (3 days prior) and a fall today. The daughter states that the patient fell on her buttocks and did not strike her head from the falls. The patient has been having difficulty walking today, when she stands her legs are shaky in give out on her. Normally the patient is able to walk however now she is having difficulty standing since the falls. She has no other reported symptoms except for significant weight loss over the last 2-3 months. Daughter also reports that the patient has a left labial ?bump/lump ?. I ordered a CBC, CMP, lipase, PT/INR, PTT, straight cath urinalysis, COVID-19, influenza and RSV. I will also obtain a CT scan of the brain and a pelvic x-ray. Patient was sent back to the waiting room until a bed is available in the emergency department. I discussed the CT findings and the x-rays with the patient's daughter, no acute findings. Patient has symptomatic urinary tract infection. Patient's daughter initially want to take the patient home, but after a long discussion that we strongly recommend admission, she agrees to stay. She agrees to have the patient admitted as long as she can stay at bedside with her mother. Which check with nursing supervisor farm equipment maintenance, who does not know if the patient daughter will be able to visit up stairs. I checked with our hospitalist, we do not have a clear answer, but is possible and likely that they will be able to make an exception in the morning, since the daughter is very helpful and redirect the patient and help the nurses with her mother. Patient being admitted for symptomatic UTI. I discussed the patient with Dr. Martinez, patient being admitted. 23:55, I was informed by the patient's nurse that the patient's daughter changed her mind, she is agreeable to have her mother have IV fluids but then she would like to take her mother home. The daughter states that they have services at home, and the family is pretty good at helping to take care of the patient. I discussed with the patient's daughter that if the patient develops any worsening symptoms, fever, they need to bring the patient back to the emergency room and get her admitted as originally planned. Patient's daughter agrees with plan <Nazia Jorge MD - Last Filed: 10/25/22 00:05> Medical Decision Making Differential Diagnosis Differential Diagnoses: The differential diagnosis associated with the presentation includes (UTI, sepsis) <Nazia Jorge MD - Last Filed: 10/25/22 00:05> Admission/Observation Consideration of admission/observation: Escalation of care including admission/observation considered (Patient was originally admitted, our hospitalist accepted to admit the patient, the patient's daughter changed her mind and declined admission) <Nazia Jorge MD - Last Filed: 10/25/22 00:05> Consult Healthcare Provider Management of the patient was discussed with: Hospitalist (Dr. Martinez agreed to admit the patient. However, she has been informed that the patient's family declined the admission and would like the patient to be taken home) <Nazia Jorge MD - Last Filed: 10/25/22 00:05> Lab Data MDM Lab Attestation statement: I reviewed the patient's lab results. <Nazia Jorge MD - Last Filed: 10/25/22 00:05> Result Diagrams: : 10/24/22 20:59 10/24/22 20:59 <Jj Ramos MD - Last Filed: 10/24/22 20:21> Labs: Lab Results 10/24/22 10/24/22 10/24/22 Range/Units 20:59 20:59 20:59 WBC 13.5 H (4.8-10.8) X10*3/uL RBC 5.07 (4.20-5.50) X10*6/uL Hgb 15.9 (12.0-16.0) g/dl Hct 46.5 (37.0-47.0) % MCV 91.7 (80.0-98.0) fL MCH 31.4 (27.0-33.0) pg MCHC 34.2 (31.0-35.0) g/dl RDW 12.4 (11.0-16.0) % Plt Count 555 H (160-400) X10*3/uL MPV 10.6 (9.4-12.3) fL Immature Gran % (Auto) 0.5 H (0.0-0.4) % Neut % (Auto) 81.3 H (45-73) % Lymph % (Auto) 11.8 L (20-40) % [place] % (Auto) 5.7 (2-11) % Eos % (Auto) 0.4 (0-4) % Baso % (Auto) 0.3 (0-2) % Lymph # (Auto) 1.6 (1.2-4.9) X10*3/uL [place] # (Auto) 0.8 (0.1-1.2) X10*3/uL Eos # (Auto) 0.1 (0.0-0.4) X10*3/uL Baso # (Auto) 0.0 (0.0-0.2) X10*3/uL Abs Immat Gran (auto) 0.07 H (0.00-0.03) X10*3/uL Absolute Neuts (auto) 11.0 H (2.0-8.3) x10*3/uL Absolute Nucleated RBC 0.000 (0.0-0.012) X10*3/uL Nucleated RBC % (auto) 0.0 (0.0-0.2) /100WBC PT 14.1 H (10.0-13.1) SEC INR 1.2 H (0.9-1.1) APTT 30.4 (26.0-36.4) SEC Sodium 146 H (135-145) mmol/L Potassium 3.4 (3.3-5.1) mmol/L Chloride 103 (96-108) mmol/L Carbon Dioxide 30 H (22-29) mmol/L Anion Gap 16 (12-20) BUN 21 H (9-16) mg/dL Creatinine 1.06 (0.5-1.4) mg/dL Estim Creat Clear Calc 52.5 Estimated GFR 53 Random Glucose 271 H (60-115) mg/dL Calcium 10.4 H (8.4-10.2) mg/dL Total Bilirubin 0.4 (0.0-1.0) mg/dL AST 31 (5-31) U/L ALT 26 (0-31) U/L Alkaline Phosphatase 124 H (39-117) U/L Total Protein 8.1 H (6.5-8.0) g/dL Albumin 4.4 (3.5-5.0) g/dL Lipase 58 (8-78) U/L Urine Color Urine Appearance Urine pH (5.0-9.0) Ur Specific [place] (1.005-1.025) Urine Protein (Neg-Trace) mg/dL Urine Glucose (UA) (Negative) mg/dL Urine Ketones (Negative) mg/dL Urine Blood (Negative) Urine Nitrite (Negative) Ur Leukocyte Esterase (Negative) Urine RBC (0-2) /HPF Urine WBC (0-5) /HPF Ur Squamous Epith Cells (0-2) /HPF Urine Bacteria (None Seen) Hyaline Casts (0-2) /LPF Influenza Type A (PCR) (Negative) Influenza Type B (PCR) (Negative) RSV RNA Qual (PCR) (Negative) SARS-CoV-2 RNA (RT-PCR) (Negative) 10/24/22 10/24/22 Range/Units 21:51 21:51 WBC (4.8-10.8) X10*3/uL RBC (4.20-5.50) X10*6/uL Hgb (12.0-16.0) g/dl Hct (37.0-47.0) % MCV (80.0-98.0) fL MCH (27.0-33.0) pg MCHC (31.0-35.0) g/dl RDW (11.0-16.0) % Plt Count (160-400) X10*3/uL MPV (9.4-12.3) fL Immature Gran % (Auto) (0.0-0.4) % Neut % (Auto) (45-73) % Lymph % (Auto) (20-40) % [place] % (Auto) (2-11) % Eos % (Auto) (0-4) % Baso % (Auto) (0-2) % Lymph # (Auto) (1.2-4.9) X10*3/uL [place] # (Auto) (0.1-1.2) X10*3/uL Eos # (Auto) (0.0-0.4) X10*3/uL Baso # (Auto) (0.0-0.2) X10*3/uL Abs Immat Gran (auto) (0.00-0.03) X10*3/uL Absolute Neuts (auto) (2.0-8.3) x10*3/uL Absolute Nucleated RBC (0.0-0.012) X10*3/uL Nucleated RBC % (auto) (0.0-0.2) /100WBC PT (10.0-13.1) SEC INR (0.9-1.1) APTT (26.0-36.4) SEC Sodium (135-145) mmol/L Potassium (3.3-5.1) mmol/L Chloride (96-108) mmol/L Carbon Dioxide (22-29) mmol/L Anion Gap (12-20) BUN (9-16) mg/dL Creatinine (0.5-1.4) mg/dL Estim Creat Clear Calc Estimated GFR Random Glucose (60-115) mg/dL Calcium (8.4-10.2) mg/dL Total Bilirubin (0.0-1.0) mg/dL AST (5-31) U/L ALT (0-31) U/L Alkaline Phosphatase (39-117) U/L Total Protein (6.5-8.0) g/dL Albumin (3.5-5.0) g/dL Lipase (8-78) U/L Urine Color Dark Yellow Urine Appearance Cloudy Urine pH 5.5 (5.0-9.0) Ur Specific [place] 1.025 (1.005-1.025) Urine Protein 30 (1+) H (Neg-Trace) mg/dL Urine Glucose (UA) Negative (Negative) mg/dL Urine Ketones Trace (Negative) mg/dL Urine Blood Trace H (Negative) Urine Nitrite Positive H (Negative) Ur Leukocyte Esterase Moderate (2+) H (Negative) Urine RBC 0-2 (0-2) /HPF Urine WBC >50 H (0-5) /HPF Ur Squamous Epith Cells 0-2 (0-2) /HPF Urine Bacteria 4+ (None Seen) Hyaline Casts >20 (0-2) /LPF Influenza Type A (PCR) NEGATIVE (Negative) Influenza Type B (PCR) NEGATIVE (Negative) RSV RNA Qual (PCR) NEGATIVE (Negative) SARS-CoV-2 RNA (RT-PCR) NEGATIVE (Negative) <Jj Ramos MD - Last Filed: 10/24/22 20:21> Lab Results 10/24/22 10/24/22 10/24/22 Range/Units 20:59 20:59 20:59 WBC 13.5 H (4.8-10.8) X10*3/uL RBC 5.07 (4.20-5.50) X10*6/uL Hgb 15.9 (12.0-16.0) g/dl Hct 46.5 (37.0-47.0) % MCV 91.7 (80.0-98.0) fL MCH 31.4 (27.0-33.0) pg MCHC 34.2 (31.0-35.0) g/dl RDW 12.4 (11.0-16.0) % Plt Count 555 H (160-400) X10*3/uL MPV 10.6 (9.4-12.3) fL Immature Gran % (Auto) 0.5 H (0.0-0.4) % Neut % (Auto) 81.3 H (45-73) % Lymph % (Auto) 11.8 L (20-40) % [place] % (Auto) 5.7 (2-11) % Eos % (Auto) 0.4 (0-4) % Baso % (Auto) 0.3 (0-2) % Lymph # (Auto) 1.6 (1.2-4.9) X10*3/uL [place] # (Auto) 0.8 (0.1-1.2) X10*3/uL Eos # (Auto) 0.1 (0.0-0.4) X10*3/uL Baso # (Auto) 0.0 (0.0-0.2) X10*3/uL Abs Immat Gran (auto) 0.07 H (0.00-0.03) X10*3/uL Absolute Neuts (auto) 11.0 H (2.0-8.3) x10*3/uL Absolute Nucleated RBC 0.000 (0.0-0.012) X10*3/uL Nucleated RBC % (auto) 0.0 (0.0-0.2) /100WBC PT 14.1 H (10.0-13.1) SEC INR 1.2 H (0.9-1.1) APTT 30.4 (26.0-36.4) SEC Sodium 146 H (135-145) mmol/L Potassium 3.4 (3.3-5.1) mmol/L Chloride 103 (96-108) mmol/L Carbon Dioxide 30 H (22-29) mmol/L Anion Gap 16 (12-20) BUN 21 H (9-16) mg/dL Creatinine 1.06 (0.5-1.4) mg/dL Estim Creat Clear Calc 52.5 Estimated GFR 53 Random Glucose 271 H (60-115) mg/dL Calcium 10.4 H (8.4-10.2) mg/dL Total Bilirubin 0.4 (0.0-1.0) mg/dL AST 31 (5-31) U/L ALT 26 (0-31) U/L Alkaline Phosphatase 124 H (39-117) U/L Total Protein 8.1 H (6.5-8.0) g/dL Albumin 4.4 (3.5-5.0) g/dL Lipase 58 (8-78) U/L Urine Color Urine Appearance Urine pH (5.0-9.0) Ur Specific [place] (1.005-1.025) Urine Protein (Neg-Trace) mg/dL Urine Glucose (UA) (Negative) mg/dL Urine Ketones (Negative) mg/dL Urine Blood (Negative) Urine Nitrite (Negative) Ur Leukocyte Esterase (Negative) Urine RBC (0-2) /HPF Urine WBC (0-5) /HPF Ur Squamous Epith Cells (0-2) /HPF Urine Bacteria (None Seen) Hyaline Casts (0-2) /LPF Influenza Type A (PCR) (Negative) Influenza Type B (PCR) (Negative) RSV RNA Qual (PCR) (Negative) SARS-CoV-2 RNA (RT-PCR) (Negative) 10/24/22 10/24/22 Range/Units 21:51 21:51 WBC (4.8-10.8) X10*3/uL RBC (4.20-5.50) X10*6/uL Hgb (12.0-16.0) g/dl Hct (37.0-47.0) % MCV (80.0-98.0) fL MCH (27.0-33.0) pg MCHC (31.0-35.0) g/dl RDW (11.0-16.0) % Plt Count (160-400) X10*3/uL MPV (9.4-12.3) fL Immature Gran % (Auto) (0.0-0.4) % Neut % (Auto) (45-73) % Lymph % (Auto) (20-40) % [place] % (Auto) (2-11) % Eos % (Auto) (0-4) % Baso % (Auto) (0-2) % Lymph # (Auto) (1.2-4.9) X10*3/uL [place] # (Auto) (0.1-1.2) X10*3/uL Eos # (Auto) (0.0-0.4) X10*3/uL Baso # (Auto) (0.0-0.2) X10*3/uL Abs Immat Gran (auto) (0.00-0.03) X10*3/uL Absolute Neuts (auto) (2.0-8.3) x10*3/uL Absolute Nucleated RBC (0.0-0.012) X10*3/uL Nucleated RBC % (auto) (0.0-0.2) /100WBC PT (10.0-13.1) SEC INR (0.9-1.1) APTT (26.0-36.4) SEC Sodium (135-145) mmol/L Potassium (3.3-5.1) mmol/L Chloride (96-108) mmol/L Carbon Dioxide (22-29) mmol/L Anion Gap (12-20) BUN (9-16) mg/dL Creatinine (0.5-1.4) mg/dL Estim Creat Clear Calc Estimated GFR Random Glucose (60-115) mg/dL Calcium (8.4-10.2) mg/dL Total Bilirubin (0.0-1.0) mg/dL AST (5-31) U/L ALT (0-31) U/L Alkaline Phosphatase (39-117) U/L Total Protein (6.5-8.0) g/dL Albumin (3.5-5.0) g/dL Lipase (8-78) U/L Urine Color Dark Yellow Urine Appearance Cloudy Urine pH 5.5 (5.0-9.0) Ur Specific [place] 1.025 (1.005-1.025) Urine Protein 30 (1+) H (Neg-Trace) mg/dL Urine Glucose (UA) Negative (Negative) mg/dL Urine Ketones Trace (Negative) mg/dL Urine Blood Trace H (Negative) Urine Nitrite Positive H (Negative) Ur Leukocyte Esterase Moderate (2+) H (Negative) Urine RBC 0-2 (0-2) /HPF Urine WBC >50 H (0-5) /HPF Ur Squamous Epith Cells 0-2 (0-2) /HPF Urine Bacteria 4+ (None Seen) Hyaline Casts >20 (0-2) /LPF Influenza Type A (PCR) NEGATIVE (Negative) Influenza Type B (PCR) NEGATIVE (Negative) RSV RNA Qual (PCR) NEGATIVE (Negative) SARS-CoV-2 RNA (RT-PCR) NEGATIVE (Negative) <Nazia Jorge MD - Last Filed: 10/25/22 00:05> Independent Historian Clinical information obtained from an independent historian. History obtained from or confirmed by: Other (Daughter gave the whole history. Patient has advanced dementia and can not give any significant history) <Nazia Jorge MD - Last Filed: 10/25/22 00:05> Discharge Plan Discharge Clinical Impression: UTI (urinary tract infection), Multiple falls, Weakness <Jj Ramos MD - Last Filed: 10/24/22 20:21> Patient Disposition: Home, Self-Care <Jj Ramos MD - Last Filed: 10/24/22 20:21> Instructions: Weakness (ED), Fall Prevention (ED), Urinary Tract Infection in Older Adults (ED) <Jj Ramos MD - Last Filed: 10/24/22 20:21> Additional Instructions: Admission was offered but declined. Please follow-up with your primary care physician tomorrow. If you have any worsening or new symptoms, please return to the emergency room or call 911 <Jj Ramos MD - Last Filed: 10/24/22 20:21> Prescriptions: New levofloxacin 500 mg tablet 500 mg PO DAILY Qty: 7 0RF No Action gabapentin 400 mg capsule 400 mg PO TID Qty: 90 5RF nitrofurantoin monohyd/m-cryst [Macrobid] 100 mg capsule 100 mg PO Q12H 7 Days Qty: 14 0RF Rx Instructions: must administer with a meal/food estradiol [Estrace] 0.01 % (0.1 mg/gram) cream See Rx Instructions .Route DAILY 30 Days Qty: 42.5 0RF Rx Instructions: pea sized amount per urethra daily; carvedilol 6.25 mg tablet 6.25 mg PO Q12H Rx Instructions: must administer with a meal/food paroxetine HCl 40 mg tablet 40 mg PO DAILY donepezil 10 mg tablet 10 mg PO DAILY atorvastatin 20 mg tablet 20 mg PO DAILY amlodipine 5 mg tablet 5 mg PO DAILY gabapentin 400 mg capsule 400 mg PO DAILY donepezil 10 mg tablet 10 mg PO BEDTIME memantine 10 mg tablet 10 mg PO BID oxycodone 5 mg tablet 5 mg PO QID PRN ibuprofen 800 mg tablet 800 mg PO TID doxycycline hyclate 100 mg tablet 100 mg PO BID ciprofloxacin HCl 500 mg tablet 500 mg PO Q12H metformin 500 mg tablet 500 mg PO BID <Jj Ramos MD - Last Filed: 10/24/22 20:21>
--- NOTE | 2022-10-24 20:16 | ECG_ITS ---
Test Reason : WEAKNESS Blood Pressure : / mmHG Vent. Rate : 117 BPM Atrial Rate : 117 BPM P-R Int : 118 ms QRS Dur : 078 ms QT Int : 328 ms P-R-T Axes : 047 058 043 degrees QTc Int : 457 ms Sinus tachycardia Inferior and lateral ST depressions. consider ischemia Abnormal ECG When compared to the previous EKG of sinus tachycardia present ST depressions present
[2022-10-24 21:16] LABS: MANUAL DIFF FLAG NO
[2022-10-24 21:17] LABS: Basophils Percent Auto 0.3 % (0-2); Eosinophils Absolute Auto 0.1 X10*3/uL (0.0-0.4); Eosinophils Percent Auto 0.4 % (0-4); Hematocrit 46.5 % (37.0-47.0); Hemoglobin 15.9 g/dl (12.0-16.0); Imm Gran Abs Auto 0.07 X10*3/uL (0.00-0.03); Imm Gran Pct Auto 0.5 % (0.0-0.4); Lymphocytes Absolute Auto 1.6 X10*3/uL (1.2-4.9); Lymphocytes Percent Auto 11.8 % (20-40); Mean Corpuscular HGB Conc 34.2 g/dl (31.0-35.0); Mean Corpuscular Hemoglobin 31.4 pg (27.0-33.0); Mean Corpuscular Volume 91.7 fL (80.0-98.0); Mean Platelet Volume 10.6 fL (9.4-12.3); Monocytes Absolute Auto 0.8 X10*3/uL (0.1-1.2); Monocytes Percent Auto 5.7 % (2-11); Neutrophils Percent Auto 81.3 % (45-73); Platelet Count 555 X10*3/uL (160-400); Red Blood Count 5.07 X10*6/uL (4.20-5.50); Red Cell Distribution Width 12.4 % (11.0-16.0); White Blood Count 13.5 X10*3/uL (4.8-10.8)
[2022-10-24 21:23] LABS: INTERNATIONAL NORM RATIO 1.2 (0.9-1.1); Prothrombin Time 14.1 SEC (10.0-13.1)
[2022-10-24 21:25] LABS: Partial Thromboplastin Time 30.4 SEC (26.0-36.4)
[2022-10-24 21:31] LABS: Alanine Aminotransferase 26 U/L (0-31); Albumin Level 4.4 g/dL (3.5-5.0); Alkaline Phosphatase 124 U/L (39-117); Anion Gap 16 (12-20); Aspartate Amino Transferase 31 U/L (5-31); Bilirubin Total 0.4 mg/dL (0.0-1.0); Blood Urea Nitrogen 21 mg/dL (9-16); Calcium 10.4 mg/dL (8.4-10.2); Carbon Dioxide 30 mmol/L (22-29); Chloride 103 mmol/L (96-108); Creatinine Clr Calc Pharmacy 52.5; Estimated Glomerular Filt Rate 53; Glucose Random 271 mg/dL (60-115); Lipase 58 U/L (8-78); Potassium 3.4 mmol/L (3.3-5.1); Sodium 146 mmol/L (135-145); Total Protein 8.1 g/dL (6.5-8.0)
[2022-10-24 21:41] VITALS: BP 161/111; PULSE 110; RESP 14; TEMP 36.5; O2SAT 95
[2022-10-24 22:00] LABS: Appearance Urine Cloudy; Color Urine Dark Yellow; Glucose Urine UA Negative (Negative); Leukocyte Esterase Urine Moderate (2+) (Negative); Nitrite Urine Positive (Negative); PH 5.5 (5.0-9.0); Specific Gravity - Urine 1.025 (1.005-1.025); UMIC TRIGGER UACC YES; Urine Blood Trace (Negative); Urine Ketones Trace mg/dL (Negative); Urine Protein 30 (1+) mg/dL (Neg-Trace)
--- NOTE | 2022-10-24 22:17 | MHC.EDTECH ---
Pt changed over into Hospital Gown. Pt given pericare. Personal belongings placed in belongings bag. Pt given call cartwright and warm blankets
[2022-10-24 22:19] LABS: Bacteria Urine 4+ (None Seen); Hyaline Casts Urine >20 /LPF (0-2); RBC Urine 0-2 /HPF (0-2); Squamous Epithelial Cell Urine 0-2 /HPF (0-2); UACC Culture Trigger YES; WBC Urine >50 /HPF (0-5)
[2022-10-24 22:36] LABS: Influenza A PCR NEGATIVE (Negative); Influenza B PCR NEGATIVE (Negative); Resp Syncy Virus RNA Qual PCR NEGATIVE (Negative); SARS COV2 PCR INHOUSE NEGATIVE (Negative)
[2022-10-24] MEDS: Acetaminophen 325 MG TABLET 975 MG PO (23:56)
[2022-10-24] MEDS: levoFLOXacin 500 MG TABLET PO (23:57)
[2022-10-25 00:18] LABS: Lactic Acid 3.5 mmol/L (0.5-2.0)
[2022-10-25] MEDS: 0.9 % Sodium Chloride 2,000 ML 999 ML IVCONT (00:19)
[2022-10-25 01:55] LABS: Reflex Lactate? Lactic Acid Added
[2022-10-25 02:12] VITALS: BP 115/50; PULSE 80; RESP 14; TEMP 36.6; O2SAT 94
[2022-10-25 02:57] LABS: ~Lactic Acid-LAB USE ONLY 1.9 mmol/L (0.5-2.0)
== END 2022-10-25 03:22 | disposition home or self-care (01) ==
PROVIDERS: Emergency Medicine Emergency Medical Services; Emergency Provider Emergency Medicine; PCP Internal Medicine
DX: N39.0 Urinary tract infection, site not specified (principal); B96.20 Unspecified Escherichia coli [E. coli] as the cause of diseases classified elsewhere; R53.1 Weakness; R29.6 Repeated falls; Z91.81 History of falling; Z20.822 Contact with and (suspected) exposure to COVID-19; I10 Essential (primary) hypertension; G30.9 Alzheimer's disease, unspecified; F02.80 Dementia in other diseases classified elsewhere, unspecified severity, without behavioral disturbance, psychotic disturbance, mood disturbance, and anxiety; Z79.02 Long term (current) use of antithrombotics/antiplatelets; Z79.899 Other long term (current) drug therapy; Z87.440 Personal history of urinary (tract) infections
CPT/HCPCS: 0241U; 36415; 51701; 70450; 72170; 80053; 81001; 81003; 83605; 83690; 85025; 85610; 85730; 87040; 87086; 87088; 87186; 93005; 96360; 96361; 99284; 99285

== ENCOUNTER 2023-06-14 11:37 | Outpatient (REF) | payer MEDICAID, SELFPAY ==
[2023-06-14 13:53] LABS: MANUAL DIFF FLAG NO
[2023-06-14 14:08] LABS: Basophils Absolute Auto 0.1 X10*3/uL (0.0-0.2); Basophils Percent Auto 0.9 % (0-2); Eosinophils Absolute Auto 0.1 X10*3/uL (0.0-0.4); Hematocrit 34.3 % (37.0-47.0); Hemoglobin 12.4 g/dl (12.0-16.0); Imm Gran Abs Auto 0.01 X10*3/uL (0.00-0.03); Imm Gran Pct Auto 0.2 % (0.0-0.4); Lymphocytes Absolute Auto 2.4 X10*3/uL (1.2-4.9); Lymphocytes Percent Auto 40.3 % (20-40); Mean Corpuscular HGB Conc 36.2 g/dl (31.0-35.0); Mean Corpuscular Hemoglobin 36.3 pg (27.0-33.0); Mean Corpuscular Volume 100.3 fL (80.0-98.0); Mean Platelet Volume 12.3 fL (9.4-12.3); Monocytes Absolute Auto 0.6 X10*3/uL (0.1-1.2); Monocytes Percent Auto 9.4 % (2-11); Neutrophils Absolute Auto 2.8 x10*3/uL (2.0-8.3); Neutrophils Percent Auto 48.2 % (45-73); Platelet Count 462 X10*3/uL (160-400); Red Blood Count 3.42 X10*6/uL (4.20-5.50); Red Cell Distribution Width 14.7 % (11.0-16.0); White Blood Count 5.9 X10*3/uL (4.8-10.8)
[2023-06-14 15:14] LABS: Alanine Aminotransferase 22 U/L (0-31); Albumin Level 4.2 g/dL (3.5-5.0); Alkaline Phosphatase 92 U/L (39-117); Anion Gap 12 (12-20); Aspartate Amino Transferase 22 U/L (5-31); Bilirubin Direct < 0.2 mg/dL (0.0-0.5); Bilirubin Total 0.2 mg/dL (0.0-1.0); Blood Urea Nitrogen 15 mg/dL (9-16); Calcium 10.4 mg/dL (8.4-10.2); Carbon Dioxide 30 mmol/L (22-29); Chloride 108 mmol/L (96-108); Cholesterol 153 mg/dL; Estimated Glomerular Filt Rate > 60; Glucose Random 84 mg/dL (60-115); HDL Cholesterol 59 mg/dL; LDL Cholesterol Calculated 74 mg/dl; Potassium 3.7 mmol/L (3.3-5.1); Sodium 146 mmol/L (135-145); Total Protein 7.7 g/dL (6.5-8.0); Triglycerides 100 mg/dL
[2023-06-15 04:00] LABS: ~Hepatitis C Antibody Nonreactive (Nonreactive)
[2023-06-15 04:07] LABS: HIV AB/AG Nonreactive (Nonreactive); HIV Num 1 0.07 S/CO (0.00-0.99)
== END 2023-06-14 11:38 | disposition home or self-care (01) ==
LOC: HO.HHCL 11:37
PROVIDERS: Visit Provider Internal Medicine
DX: Z00.00 Encounter for general adult medical examination without abnormal findings (principal)
CPT/HCPCS: 36415; 80048; 80061; 80076; 85025; 86803; 87389

== ENCOUNTER 2023-10-29 17:06 | Emergency (ER) | payer MEDICAID, SELFPAY ==
--- NOTE | ~2023-10-29 | US_ITS ---
EXAMINATION: Noninvasive assessment of the bilateral lower extremities with ARTERIAL DUPLEX CLINICAL INFORMATION: Peripheral vascular disease, foot discoloration TECHNIQUE: Duplex Doppler techniques with waveform analysis and measurement of velocities in the bilateral common femoral, profunda femoris, superficial femoral, popliteal and tibial arteries were performed. COMPARISON: None FINDINGS: DIRECT DUPLEX DOPPLER FINDINGS: RIGHT LEG: Common femoral artery: 199 cm/s, phasicity: Triphasic Profunda femoris artery: 120 cm/s, phasicity: Triphasic Superficial femoral artery (proximal): 121 cm/s, phasicity: Triphasic Superficial femoral artery (mid): 120 cm/s, phasicity: Biphasic Superficial femoral artery (distal): 109 cm/s, phasicity: Biphasic Popliteal artery: 76.8 cm/s, phasicity: Biphasic Posterior tibial artery: 35.1 cm/s, phasicity: Monophasic Peroneal artery: 39.5 cm/s, phasicity: Biphasic Anterior tibial artery: 36.8 cm/s, phasicity: Biphasic LEFT LEG: Common femoral artery: 177 cm/s, phasicity: Triphasic Profunda femoris artery: 113 cm/s, phasicity: Triphasic Superficial femoral artery (proximal): 122 cm/s, phasicity: Triphasic Superficial femoral artery (mid): 149 cm/s, phasicity: Triphasic Superficial femoral artery (distal): 132 cm/s, phasicity: Triphasic Popliteal artery: 93 cm/s, phasicity: Biphasic Posterior tibial artery: 38.5 cm/s, phasicity: Biphasic Peroneal artery: 64.5 cm/s, phasicity: Biphasic Anterior tibial artery: 63.8 cm/s, phasicity: Biphasic US/US arterial duplex LE BI IMPRESSION: Patent arterial flow throughout the bilateral lower extremities without significant arterial stenosis or occlusion
[2023-10-29 17:19] VITALS: BP 112/62; PULSE 58; O2SAT 98
[2023-10-29 17:26] VITALS: RESP 18; BMI 14.9
[2023-10-29 17:33] VITALS: BP 101/60; PULSE 78; RESP 20
--- NOTE | 2023-10-29 18:08 | ED.GENADULT ---
HPI - General Adult General Chief complaint: General Medical Stated complaint: poor circulation in feet, dementia, weakness Time Seen by Provider: 10/29/23 17:59 Source: family ( caregiver) and EMS Mode of arrival: EMS Limitations: other ( advanced dementia) History of Present Illness HPI narrative: patient is here today accompanied by her caregiver for evaluation of foot discoloration that is resolved now, patient normally is bed ridden get out of bed for few steps with golf player assistant just for transfer from bed to chair, lives dependently on a caregiver 27/05. Caregiver notice purple discoloration of both feet and felt cold to touch then she called 911 to the emergency department for further evaluation in the ED caregiver stated that the purple discoloration completely resolved now. Otherwise no other complaint or concern. Related Data Home Medications Medication Instructions Recorded Confirmed amlodipine 5 mg tablet 5 mg PO DAILY 10/26/20 06/09/21 atorvastatin 20 mg tablet 20 mg PO DAILY 10/26/20 06/09/21 carvedilol 6.25 mg tablet 6.25 mg PO Q12H 10/26/20 06/09/21 donepezil 10 mg tablet 10 mg PO DAILY 10/26/20 06/09/21 gabapentin 400 mg capsule 400 mg PO DAILY 10/26/20 06/09/21 paroxetine HCl 40 mg tablet 40 mg PO DAILY 10/26/20 06/09/21 ciprofloxacin HCl 500 mg tablet 500 mg PO Q12H 06/09/21 06/09/21 donepezil 10 mg tablet 10 mg PO BEDTIME 06/09/21 06/09/21 doxycycline hyclate 100 mg tablet 100 mg PO BID 06/09/21 06/09/21 ibuprofen 800 mg tablet 800 mg PO TID 06/09/21 06/09/21 memantine 10 mg tablet 10 mg PO BID 06/09/21 06/09/21 metformin 500 mg tablet 500 mg PO BID 06/09/21 06/09/21 oxycodone 5 mg tablet 5 mg PO QID PRN 06/09/21 06/09/21 amlodipine 2.5 mg tablet 2.5 mg PO QAM 07/03/21 blood sugar diagnostic (FreeStyle #10 ea 07/03/21 Lite Strips) divalproex 250 mg tablet,extended 250 mg PO BEDTIME 07/03/21 release 24 hr lancets 33 gauge (TRUEplus Lancets) #100 ea 07/03/21 Previous Rx's Medication Instructions Recorded gabapentin 400 mg capsule 400 mg PO TID #90 caps 09/15/20 estradiol 0.01% (0.1 mg/gram) See Rx Instructions .Route DAILY 07/03/21 vaginal cream (Estrace) complicated uti 30 days #42.5 grams nitrofurantoin 100 mg PO Q12H 7 days #14 caps 09/08/21 monohydrate/macrocrystals 100 mg capsule (Macrobid) levofloxacin 500 mg tablet 500 mg PO DAILY #7 tabs 10/25/22 Allergies Allergy/AdvReac Type Severity Reaction Status Date / Time codeine [Codeine] Allergy Intermediate HIVES Verified 10/24/22 20:19 morphine Allergy Unknown unknown Verified 10/24/22 20:19 penicillin V Allergy Unknown hives Verified 10/24/22 20:19 Codeine Sulfate Allergy Unknown hives Uncoded 10/24/22 20:19 SPICES Allergy Unknown UNKNOWN Uncoded 10/24/22 20:19 Review of Systems Review of Systems: All other systems are reviewed and are negative Constitutional: Reports as per HPI and Reports no additional constitutional complaints Eyes: Reports as per HPI and Reports no additional eye complaints Reports system reviewed and no additional complaints, except as documented Cardiovascular: Reports as per HPI and Reports no additional cardiovascular complaints Respiratory: Reports as per HPI and Reports no additional respiratory complaints Gastrointestinal: Reports as per HPI and Reports no additional gastrointestinal complaints Genitourinary: Reports no additional female genitourinary complaints Musculoskeletal: Reports no additional musculoskeletal complaints Skin/Breast: Reports system reviewed and no additional complaints, except as docu Psychiatric: Reports no additional psychiatric complaints Endocrine: Reports no additional endocrine complaints Hematologic/Lymphatic: Reports no additional hematologic/lymphatic complaints Allergic/Immunologic: Reports no additional allergic/immunologic complaints Reports system reviewed and no additional complaints, except as documented and Reports Abnormal speech present [facility] Past Medical History Medical History Bladder pain Frequent UTI Urinary frequency Schatzki's ring AD (Alzheimer's disease) Carpal tunnel syndrome GERD (gastroesophageal reflux disease) Panic disorder Anxiety Depression Migraines HTN (hypertension) Arthritis Fibromyalgia Surgical History H/O: hysterectomy History of bladder surgery History of Family History Family History Father Alzheimer disease Father Alzheimer disease Mother No problems noted. Sister Alzheimer disease Social History Social History Household Members: Spouse Household Members Other:: 3 healthy children Alcohol intake: former Patient Tobacco Use Status: Never used Tobacco Smoked in Last 30 Days: No Use of substances other than those prescribed or required for medical reasons: No Advance Directives: No Advance Directives Information Provided: No Current occupational status: unemployed and disabled Sexual orientation: Straight/Heterosexual Gender identity: Female Physical Exam ED Vital Signs: Vital Signs - 24 hr 10/29/23 17:26 10/29/23 17:33 10/29/23 19:50 Temperature 97.7 F Pulse Rate 78 68 Respiratory Rate 18 20 16 Blood Pressure 101/60 115/83 Pulse Oximetry 100 Oxygen Delivery Method Room Air BMI result Body Mass Index 14.9 Vital signs have been reviewed and appear to be correct. Blood pressure elevated. Heart rate normal. Respiratory rate normal. Temperature normal. Oxygen saturation normal. Appearance: Nonverbal,No acute distress. Head: Normal external exam. Normocephalic. Atraumatic. No Lawrence signs noted. No raccoon eyes noted Eyes: PERRLA. EOMI. Conjunctiva and sclera normal. Eyelids normal. ENT: TM's Normal. Pharynx normal. Uvula midline. Moist mucous membranes. No trismus noted. No drooling noted. No muffled voice noted. Neck: Normal inspection. Neck supple. FROM. No adenopathy. Thyroid Normal. No meningeal signs. No neck mass noted. CVS: Normal heart rate and rhythm. Heart sound normal. No murmurs noted. Pulses normal throughout. Respiratory: No respiratory distress. Painless inspiration. Breath sounds normal. No wheezes/rales/rhonchi noted. Chest nontender. No accessory muscle usage noted or decreased air movement noted. Abdomen: Soft and nontender. Bowel sounds normal in all 4 quadrants. No distention noted. No organomegaly noted. No visible injury noted. Back: No CVA tenderness. Full range of motion noted. Skin: Skin warm and dry. Normal skin color. Normal skin turgor. No rashes/lesions/lacerations noted. Extremities: No lower extremity edema. Extremities exhibit normal range of motion. Extremities nontender. no sign of ischemic change on both feet Neuro: nonverbal. Course Reevaluation(s) Reevaluation #1: The patient was brought in by her caregiver for concern of purple discoloration of bilateral feet that spontaneously resolved, patient had an ultrasound to assess for the arterial flow in both lower extremities which showed patent blood flow with no arterial abnormality, patient had a normal neurovascular exam to both feet, Labs are at baseline for the patient will discharge follow-up with PCP. Time: 21:23 Medical Decision Making Differential Diagnosis Differential Diagnoses: The differential diagnosis associated with the presentation includes ( Arterial thrombotic or embolic obstruction of the lower extremities, AFib, electrolyte abnormality, severe anemia, acute ischemic change to both feet.) Admission/Observation Consideration of admission/observation: Escalation of care including admission/observation considered Lab Data MDM Lab Attestation statement: I reviewed the patient's lab results. 10/29/23 18:29 10/29/23 18:29 Labs: Lab Results 10/29/23 Range/Units 18:29 WBC 4.9 (4.8-10.8) X10*3/uL RBC 3.33 L (4.20-5.50) X10*6/uL Hgb 10.8 L (12.0-16.0) g/dl Hct 31.7 L (37.0-47.0) % MCV 95.2 (80.0-98.0) fL MCH 32.4 (27.0-33.0) pg MCHC 34.1 (31.0-35.0) g/dl RDW 13.7 (11.0-16.0) % Plt Count 246 D (160-400) X10*3/uL MPV 12.4 H (9.4-12.3) fL Immature Gran % (Auto) 0.2 (0.0-0.4) % Neut % (Auto) 49.1 (45-73) % Lymph % (Auto) 40.5 H (20-40) % Wilkinson % (Auto) 8.4 (2-11) % Eos % (Auto) 1.4 (0-4) % Baso % (Auto) 0.4 (0-2) % Lymph # (Auto) 2.0 (1.2-4.9) X10*3/uL Wilkinson # (Auto) 0.4 (0.1-1.2) X10*3/uL Eos # (Auto) 0.1 (0.0-0.4) X10*3/uL Baso # (Auto) 0.0 (0.0-0.2) X10*3/uL Abs Immat Gran (auto) 0.01 (0.00-0.03) X10*3/uL Absolute Neuts (auto) 2.4 (2.0-8.3) x10*3/uL Absolute Nucleated RBC 0.000 (0.0-0.012) X10*3/uL Nucleated RBC % (auto) 0.0 (0.0-0.2) /100WBC Sodium 142 (135-145) mmol/L Potassium 3.6 (3.3-5.1) mmol/L Chloride 103 (96-108) mmol/L Carbon Dioxide 32 H (22-29) mmol/L Anion Gap 11 L (12-20) BUN 10 (9-16) mg/dL Creatinine 0.58 (0.5-1.4) mg/dL Estim Creat Clear Calc 65.5 Estimated GFR > 60 Random Glucose 159 H (60-115) mg/dL Calcium 9.1 D (8.4-10.2) mg/dL Independent Interpretation I performed an independent interpretation of an: Ultrasound ( Arterial ultrasound to both lower extremities:Patent arterial flow throughout the bilateral lower extremities without significant arterial stenosis or occlusion ) Radiology Impression Discussion of test interpretation with radiology: I have reviewed the radiologist's reading. Discharge Plan Discharge Clinical Impression: Discoloration of skin of foot Patient Disposition: Home, Self-Care Additional Instructions: return to the ED if worsening if color change in both feet, difficulty breathing, chest pain, fever, chills. Follow-up with your PCP. Prescriptions: No Action gabapentin 400 mg capsule 400 mg PO TID Qty: 90 5RF nitrofurantoin monohyd/m-cryst [Macrobid] 100 mg capsule 100 mg PO Q12H 7 Days Qty: 14 0RF Rx Instructions: must administer with a meal/food levofloxacin 500 mg tablet 500 mg PO DAILY Qty: 7 0RF estradiol [Estrace] 0.01 % (0.1 mg/gram) cream See Rx Instructions .Route DAILY 30 Days Qty: 42.5 0RF Rx Instructions: pea sized amount per urethra daily; carvedilol 6.25 mg tablet 6.25 mg PO Q12H Rx Instructions: must administer with a meal/food paroxetine HCl 40 mg tablet 40 mg PO DAILY donepezil 10 mg tablet 10 mg PO DAILY atorvastatin 20 mg tablet 20 mg PO DAILY amlodipine 5 mg tablet 5 mg PO DAILY gabapentin 400 mg capsule 400 mg PO DAILY donepezil 10 mg tablet 10 mg PO BEDTIME memantine 10 mg tablet 10 mg PO BID oxycodone 5 mg tablet 5 mg PO QID PRN ibuprofen 800 mg tablet 800 mg PO TID doxycycline hyclate 100 mg tablet 100 mg PO BID ciprofloxacin HCl 500 mg tablet 500 mg PO Q12H metformin 500 mg tablet 500 mg PO BID
[2023-10-29 18:34] LABS: MANUAL DIFF FLAG NO
--- NOTE | 2023-10-29 18:36 | PC.NURSE ---
Patient arrived via ems after daughter reported patient was sitting watching tv when her feet turned a darker color. Daughter reports patient has dementia and is confused but does not appear to be in any pain or distress. Reports mother is mostly bed bound and spends most of her time with her feet elevated. Reports she gives her mom an enema every other day with last bm being yesteday. VSS, patient does not appear to be in any pain or distress.
[2023-10-29 18:52] LABS: Anion Gap 11 (12-20); Blood Urea Nitrogen 10 mg/dL (9-16); Calcium 9.1 mg/dL (8.4-10.2); Carbon Dioxide 32 mmol/L (22-29); Chloride 103 mmol/L (96-108); Creatinine Clr Calc Pharmacy 65.5; Estimated Glomerular Filt Rate > 60; Glucose Random 159 mg/dL (60-115); Potassium 3.6 mmol/L (3.3-5.1); Sodium 142 mmol/L (135-145)
[2023-10-29 18:57] LABS: Basophils Percent Auto 0.4 % (0-2); Eosinophils Absolute Auto 0.1 X10*3/uL (0.0-0.4); Eosinophils Percent Auto 1.4 % (0-4); Hematocrit 31.7 % (37.0-47.0); Hemoglobin 10.8 g/dl (12.0-16.0); Imm Gran Abs Auto 0.01 X10*3/uL (0.00-0.03); Imm Gran Pct Auto 0.2 % (0.0-0.4); Lymphocytes Percent Auto 40.5 % (20-40); Mean Corpuscular HGB Conc 34.1 g/dl (31.0-35.0); Mean Corpuscular Hemoglobin 32.4 pg (27.0-33.0); Mean Corpuscular Volume 95.2 fL (80.0-98.0); Mean Platelet Volume 12.4 fL (9.4-12.3); Monocytes Absolute Auto 0.4 X10*3/uL (0.1-1.2); Monocytes Percent Auto 8.4 % (2-11); Neutrophils Absolute Auto 2.4 x10*3/uL (2.0-8.3); Neutrophils Percent Auto 49.1 % (45-73); Platelet Count 246 X10*3/uL (160-400); Red Blood Count 3.33 X10*6/uL (4.20-5.50); Red Cell Distribution Width 13.7 % (11.0-16.0); White Blood Count 4.9 X10*3/uL (4.8-10.8)
[2023-10-29 19:50] VITALS: BP 115/83; PULSE 68; RESP 16; TEMP 36.5; O2SAT 100
--- NOTE | 2023-10-29 19:51 | PC.NURSE ---
This telegraphic typewriter repairer assumed care of this Pt at 1900. Pt non verbal, awake, no apparent distress, daughter at bedside reports BLL discoloration at home QUOTER. Skin is intact cool to touch and dry, no discoloration noted, + pedal pulses. Pt repositioned, incontinent care provided, pure which placed.
--- NOTE | 2023-10-29 21:02 | ECG_ITS ---
Test Reason : WEAKNESS Blood Pressure : / mmHG Vent. Rate : 068 BPM Atrial Rate : 068 BPM P-R Int : 120 ms QRS Dur : 070 ms QT Int : 388 ms P-R-T Axes : 050 068 077 degrees QTc Int : 412 ms Normal sinus rhythm Normal ECG When compared with ECG of 24-OCT-2022 21:12, Vent. rate has decreased BY [address] no longer depressed in Inferior leads ST no longer depressed in Lateral leads Nonspecific T wave abnormality no longer evident in Inferior leads Nonspecific T wave abnormality no longer evident in Lateral leads Referred By: Patrick Arroyo Electronically Signed By:COLLEEN GOMEZ
[2023-10-29 21:53] VITALS: BP 115/64; PULSE 75; RESP 16; O2SAT 100
[2023-10-29 21:58] LABS: Appearance Urine Cloudy; Color Urine Yellow; Glucose Urine UA Negative (Negative); Leukocyte Esterase Urine Negative (Negative); Nitrite Urine Negative (Negative); Specific Gravity - Urine 1.015 (1.005-1.025); Urine Blood Negative (Negative); Urine Ketones Negative (Negative); Urine Protein Negative (Neg-Trace)
--- NOTE | 2023-10-29 23:24 | MHC.EDTECH ---
call out to [facility] at 2324 to book transport back home, estimated eta given was 0025
== END 2023-10-30 01:05 | disposition home or self-care (01) ==
PROVIDERS: Emergency Provider Emergency Medicine
DX: I73.9 Peripheral vascular disease, unspecified (principal); F03.90 Unspecified dementia, unspecified severity, without behavioral disturbance, psychotic disturbance, mood disturbance, and anxiety; R53.1 Weakness; R06.02 Shortness of breath; R10.2 Pelvic and perineal pain; Z79.899 Other long term (current) drug therapy
CPT/HCPCS: 36415; 80048; 81003; 85025; 93005; 93925; 99284

== ENCOUNTER → 2023-10-29 21:02 | Outpatient (BNV) | payer MEDICAID, SELFPAY | PROVIDERS: Emergency Provider Emergency Medicine; Visit Provider Internal Medicine | DX: R00.0 Tachycardia, unspecified (principal) | CPT/HCPCS: 93010 ==